=== PATIENT | female | born 1990 | race American Indian/Alaskan Native ===

== ENCOUNTER 2018-05-01 14:15 | Emergency (ER) | payer SELFPAY ==
[2018-05-01 14:26] VITALS: BP 127/74
[2018-05-01] MEDS ORDERED: TORADOL IM ONE (14:49)
--- NOTE | 2018-05-01 14:52 | Emergency Department Report ---
Chief Complaint: Chest Pain Stated Complaint: CHEST PAIN/ Time Seen by Provider: 05/01/18 14:44 - HPI History of Present Illness: 37-year-old female presents to the emergency department with a one-week history of progressively worsening mid sternal chest pain and more recently some shortness of breath. Her pain is reproducible to palpation or any movement of her chest and/or torso. It also worsens with coughing. She tried some Motrin yesterday for symptoms without much relief. No recent travel , immobility, recent surgeries. She has no past medical history. No family history of early cardiac disease or events. She denies any tobacco or illicit drug use or abuse. - ROS Review of Systems: Positive for chest/chest wall pain, shortness of breath Negative for fever, nausea, vomiting, back pain or diaphoresis - Exam Vital Signs: Vital Signs 05/01/18 14:23 Temperature 98.9 F Pulse Rate 68 Respiratory 18 Rate Blood Pressure 127/74 O2 Sat by Pulse 100 Oximetry Physical Exam: Heart and lungs sounds are normal auscultation. Chest pain is reproducible. Patient appears uncomfortable to the chest when she coughs or moves around. MSE screening note: Focused history and physical exam performed. Due to findings the following was ordered: EKG was done and does not show any signs of ST elevation DC. There are some T- wave inversions to the septal leads. I have ordered a two-view chest x-ray. The patient will have a CBC, BMP and troponin. She will be given a shot of IM Toradol. ED Disposition for MSE Condition: Stable
--- NOTE | 2018-05-01 15:04 | Emergency Department Report ---
ED Chest Pain HPI - General Chief Complaint: Chest Pain Stated Complaint: CHEST PAIN/ Time Seen by Provider: 05/01/18 14:44 Source: patient Mode of arrival: Ambulatory Limitations: No Limitations - History of Present Illness MD Complaint: chest pain -: Gradual, week(s) (1) Onset: during rest Pain Location: substernal Pain Radiation: none Severity: moderate Consistency: intermittent Improves With: nothing Worsens With: inspiration re: denies: nausea, vomting, diaphoresis Other Symptoms: denies: cough, fever, syncope, rash, acid taste in mouth, leg swelling, palpitations, burping Treatments Prior to Arrival: other (OTC) Aspirin use within the Past 7 Days: (0) No - Related Data On Oral Contraceptives: No Allergies Allergy/AdvReac Type Severity Reaction Status Date / Time amoxicillin Allergy Unknown Verified 05/01/18 14:26 Heart Score - HEART Score History: Slightly suspicious EKG: Non-specific Age: < 45 Risk factors: No known risk factors Troponin: < normal limit HEART Score: 1 ED Review of Systems ROS: Stated complaint: CHEST PAIN/ Other details as noted in HPI Comment: All other systems reviewed and negative Constitutional: denies: chills, fever Eyes: denies: eye pain ENT: denies: ear pain, throat pain Respiratory: SOB with exertion. denies: cough, orthopnea Cardiovascular: chest pain. denies: palpitations Endocrine: see HPI. denies: excessive sweating, flushing Gastrointestinal: denies: abdominal pain, nausea, vomiting Genitourinary: denies: urgency, dysuria Musculoskeletal: denies: back pain Skin: denies: rash, lesions Neurological: denies: headache, weakness Psychiatric: denies: anxiety, depression Hematological/Lymphatic: denies: easy bleeding ED Past Medical Hx - Past Medical History Previous Medical History?: No - Surgical History Past Surgical History?: No - Family History Family history: no significant - Social History Smoking Status: Never Smoker Substance Use Type: None ED Physical Exam - General Limitations: No Limitations General appearance: alert, in no apparent distress - Head Head exam: Present: atraumatic, normal inspection - Eye Eye exam: Present: PERRL. Absent: conjunctival injection, periorbital swelling , periorbital tenderness - ENT ENT exam: Present: mucous membranes moist, normal external ear exam - Neck Neck exam: Present: normal inspection, full ROM. Absent: tenderness, meningismus, lymphadenopathy, thyromegaly - Respiratory Respiratory exam: Present: normal lung sounds bilaterally. Absent: respiratory distress, wheezes, rales, rhonchi, stridor, chest wall tenderness, accessory muscle use, decreased breath sounds, prolonged expiratory - Cardiovascular Cardiovascular Exam: Present: regular rate, normal heart sounds, other (NO EDEMA ). Absent: normal rhythm, bradycardia, irregular rhythm, systolic murmur, diastolic murmur, rubs, gallop, clicks, JVD, S3, S4 - GI/Abdominal GI/Abdominal exam: Present: soft, normal bowel sounds. Absent: distended, tenderness, guarding - Rectal Rectal exam: Present: deferred - Extremities Exam Extremities exam: Present: normal inspection - Back Exam Back exam: Present: normal inspection - Neurological Exam Neurological exam: Present: alert, oriented X3, CN II-XII intact, normal gait - Psychiatric Psychiatric exam: Present: normal affect, normal mood - Skin Skin exam: Present: warm, dry, intact, normal color. Absent: rash, cyanosis, diaphoretic, erythema, urticaria, vesicles, petechiae, pallor, abrasion, ecchymosis ED Course Vital Signs 05/01/18 14:23 Temperature 98.9 F Pulse Rate 68 Respiratory 18 Rate Blood Pressure 127/74 O2 Sat by Pulse 100 Oximetry ESTELLA score - Estella Score Age > 65: (0) No Aspirin use within the Past 7 Days: (0) No 3 or more CAD Risk Factors: (0) No 2 or more Angina events in past 24 hrs: (0) No Known CAD with more than 50% Stenosis: (0) No Elevated Cardiac Markers: (0) No ST Deviation Greater than 0.5mm: (0) No ESTELLA Score: 0 ED Medical Decision Making - Lab Data Result diagrams: 05/01/18 15:14 05/01/18 15:14 - EKG Data -: EKG Interpreted by Me EKG shows normal: sinus rhythm, ST-T waves Rate: normal - EKG Data When compared to previous EKG there are: other (T WAVE INVERSION ) Interpretation: no acute changes - Radiology Data Radiology results: report reviewed, image reviewed - Medical Decision Making THIN OTHERWISE HEALTHY NO LONG TRAVEL NO BCP OR HORMONE NO TACHY NO RV STRAIN NO HYPOXIA ST T WAVE CHANGES PER DR FLYNN TROP NEG HEART SCORE 1 PLEURITIC CP WORSE W DEEP BREATH EXERCISES OFTEN CHANGE OF SEASON COUGH AT TIMES NOTED DURING EXAM XRAY WO PNA OR CARDIOMEGALY OR MED MASS. WBC 3.2- SEE DIFF WILL TREAT CONSERVATIVE FOR FEW DAYS FOLLOW UP PROVIDED TO BE SURE RESOLVES. - Differential Diagnosis PLEURISY, COSTROCONDRITIS, ACS, MUSC. SKELETAL PAIN, PE Critical care attestation.: If time is entered above; I have spent that time in minutes in the direct care of this critically ill patient, excluding procedure time. ED Disposition Clinical Impression: Pleuritic chest pain, Pleurisy Disposition: TO HOME OR SELFCARE Is pt being admited?: No Does the pt Need Aspirin: No Condition: Stable Instructions: Chest Pain (ED) Additional Instructions: REST HYDRATE WELL MOTRIN OVER THE COUNTER 800 MG EVERY 8 HOURS IF NEEDED FOR PAIN. DIET TOLERATED IF NOT BETTER WITHIN 3-5 DAYS FOLLOW UP WITH [employer]- REFERRAL PROVIDED HERE TODAY NO EXERCISE UNTIL THIS RESOLVES RETURN FOR WORSENING SIGNS AND SYMPTOMS INCLUDING FEVER, WORSENING CHEST PAIN OR SHORTNESS OF BREATH. Referrals: ERICA DESIR MD [Referring] - 3-5 Days Time of Disposition: 16:01
--- NOTE | 2018-05-01 15:17 | XRay Report ---
FINAL REPORT EXAM: XR CHEST ROUTINE 2V HISTORY: CP TECHNIQUE: Frontal and lateral chest x-ray. PRIORS: None. FINDINGS: Cardiac and mediastinal silhouette within normal limits. Lungs are normally expanded and grossly clear. No apparent pleural effusion or pneumothorax. Bony thorax grossly unremarkable. IMPRESSION: 1. No acute findings.
[2018-05-01 15:25] LABS: Basophils # (Auto) 0.1 K/mm3 (0.0-0.1); Basophils % (Auto) 1.7 % (0.0-1.8); Eosinophils # (Auto) 0.2 K/mm3 (0.0-0.4); Eosinophils % (Auto) 6.2 % (0.0-4.3); Hematocrit 39.3 % (30.3-42.9); Hemoglobin 12.9 gm/dl (10.1-14.3); Lymphocytes # (Auto) 1.3 K/mm3 (1.2-5.4); Mean Corpuscular HGB Conc 33 % (30-34); Mean Corpuscular Hemoglobin 27 pg (28-32); Mean Corpuscular Volume 84 fl (79-97); Monocytes # (Auto) 0.4 K/mm3 (0.0-0.8); Monocytes % (Auto) 11.8 % (0.0-7.3); Platelet Count 207 K/mm3 (140-440); Red Blood Count 4.69 M/mm3 (3.65-5.03); Red Cell Distribution Width 14.6 % (13.2-15.2)
[2018-05-01 15:41] LABS: BUN/Creatinine Ratio 11; Blood Urea Nitrogen 10 mg/dL (7-17); Calcium 9.4 mg/dL (8.4-10.2); Hemolysis Index 19
== END 2018-05-01 16:46 | disposition home or self-care (01) ==
LOC: ED 14:15
DX: R09.1 Pleurisy (principal); R07.1 Chest pain on breathing; Z88.1 Allergy status to other antibiotic agents
CPT/HCPCS: 36415; 71046; 80048; 84484; 85025; 93005; 93010; 96372; 99283; J1885